=== PATIENT | female | born 1955 | race African-American/Black ===

== ENCOUNTER 2017-05-05 07:01 | Outpatient (CLI) | END 2017-05-05 07:02 | disposition home or self-care (01) | LOC: LAB 07:01 | PROVIDERS: ATTEND Specialist | DX: Z79.899 Other long term (current) drug therapy (principal) | CPT/HCPCS: 36415; 80053; 80061 ==

== ENCOUNTER 2018-01-03 12:26 | Outpatient (CLI) ==
--- NOTE | 2018-01-03 15:31 | CT ---
EXAM: CT of the abdomen pelvis without contrast History: Hematuria. Technique: Multiplanar CT images through the abdomen pelvis were obtained without the administration of IV contrast Findings: 7 mm nodule within the right lower lobe. No acute osseous abnormalities. There are several hypoattenuating liver lesions, some of which are too small to characterize accurate ly by CT but probably represents cysts. The largest measures 2.3 cm. No peripancreatic inflammation. Adrenal glands are unremarkable. Spleen is within normal limits. 3 mm calculus within the distal right ureter causing mild to moderate right hydronephrosis and hydroure ter. There is right perinephric stranding. No intra renal calculi. Evaluation of the renal parench yma is limited due to the lack of contrast administration. No bowel obstruction. The appendix is no rmal. Bladder is not well distended. No perirectal inflammation. Atrophic uterus. No free air and no ascites. Scattered colonic stool. Impression: 1. 3 mm calculus within the distal right ureter causing mild to moderate right hydronephrosis. 2. Hepatic hypodensities some of which are too small to characterize accurately by CT but most likel y represents cysts.
== END 2018-01-03 12:27 | disposition home or self-care (01) ==
LOC: RAD 12:26
PROVIDERS: ATTEND Physician Assistant
DX: R10.11 Right upper quadrant pain (principal); R31.29 Other microscopic hematuria
CPT/HCPCS: 36415; 80053; 82150; 83690; 85025

== ENCOUNTER 2018-03-27 11:15 | Outpatient (CLI) | END 2018-03-27 11:16 | disposition home or self-care (01) | LOC: LAB 11:15 | PROVIDERS: ATTEND Specialist | DX: Z01.810 Encounter for preprocedural cardiovascular examination (principal); Z45.02 Encounter for adjustment and management of automatic implantable cardiac defibrillator; Z79.899 Other long term (current) drug therapy; I42.9 Cardiomyopathy, unspecified | CPT/HCPCS: 36415; 80053; 85025 ==